=== PATIENT | female | born 1935 | race Caucasian/White ===

== ENCOUNTER 2016-06-28 08:18 | Inpatient (IN) | payer MEDICARE, OTHER ==
[2016-06-22 10:10] LABS: BASOPHILS 0.3 %; BASOPHILS ABSOLUTE 0.02 10/3/uL (0.0-0.16); EOSINOPHILS 2.4 %; EOSINOPHILS ABSOLUTE 0.17 10/3/uL (0.0-0.53); HEMATOCRIT 37.9 % (36.0-48.0); HEMOGLOBIN 12.7 g/dL (12.0-16.0); IMMATURE GRANULOCYTES 0.1 %; IMMATURE GRANULOCYTES ABSOLUTE 0.01 10/3/uL (0.0-0.11); LYMPHOCYTES 35.2 %; LYMPHOCYTES ABSOLUTE 2.49 10/3/uL (0.67-4.30); MEAN CORPUS HGB CONC 33.5 g/dL (32.0-36.0); MEAN CORPUSCULAR HEMOGLOB 26.6 pg (26.0-34.0); MEAN CORPUSCULAR VOLUME 79.3 fL (80-100); MEAN PLATELET VOLUME 11.2 fL (9.2-13.0); MONOCYTES 19.9 %; MONOCYTES ABSOLUTE 1.41 10/3/uL (0.21-1.20); NEUTROPHILS 42.1 %; NEUTROPHILS ABSOLUTE 2.97 10/3/uL (2.02-8.40); PLATELET COUNT 295 10/3/uL (150-400); RBC DISTRIBUTION WIDTH 14.1 % (12.0-16.0); RED CELL COUNT 4.78 10/6/uL (4.0-5.6); WHITE BLOOD CELLS 7.1 10/3/uL (4.5-10.5)
[2016-06-22 10:14] LABS: MANUAL DIFF NO %
[2016-06-22 10:23] LABS: % IRON SAT 16 % (20-50); A/G RATIO 1.3 (0.7-1.9); ALBUMIN 4.1 G/DL (3.5-5.0); ALKALINE PHOSPHATASE 70 U/L (45-117); BUN (BLOOD UREA NITROGEN) 35 MG/DL (6-23); CALCIUM, SERUM 8.8 MG/DL (8.5-10.4); CHLORIDE, SERUM 102 MMOL/L (96-112); CO2 (CARBON DIOXIDE) 27 MMOL/L (24-34); CREATININE 1.55 MG/DL (0.55-1.02); GFR AFRICAN AMERICAN 36 ML/MIN (>=60); GFR NON AFRICAN AMERICAN 31 ML/MIN (>=60); GLOBULIN 3.1 G/DL (2.5-4.1); GLUCOSE, SERUM 80 MG/DL (60-99); IRON BINDING CAPACITY 366 MCG/DL (225-410); IRON, SERUM 57 MCG/DL (35-150); POTASSIUM, SERUM 3.2 MMOL/L (3.5-5.3); SGOT(AST) 12 U/L (5-40); SGPT(ALT) 22 U/L (5-65); SODIUM, SERUM 137 MMOL/L (135-148); TOTAL BILIRUBIN 0.4 MG/DL (0-1.2); TOTAL PROTEIN 7.2 G/DL (6.0-8.5)
[2016-06-22 10:25] LABS: INTERNATIONAL NORMAL RATI 0.9 UNITS (-); PROTIME (NOT ORD) 12.3 SEC (12.0-14.5)
[2016-06-22 10:26] LABS: ASCORBIC ACID (UR NOT ORDER) NEG (NEG); BILIRUBIN, URINE NEGATIVE (NEG); KETONE, URINE NEGATIVE (NEG); LEUKOCYTE ESTERASE(NOT OR NEG (NEG); WBC (NOT ORDERED) (RFLEX) 1 (0-5)
--- NOTE | ~2016-06-28 | CN ---
Consultation Report [facility] [address] [place]. [address] NAME: MISHA STEWART : 35 STATUS : ADM IN PAT#: [id number] AGE: 80 ADM/REG DATE : 06/28/16 MR#: [id number] REPORT SERV DATE: 06/30/16 DICTATED BY: DELMY HODGSON DATE: 06/30/16 REPORT STATUS : Draft TRANSCRIBED BY: MODL DATE: 06/30/16 DATE OF CONSULTATION: 06/30/2016 REASON FOR CONSULTATION: Hyperglycemia, prediabetes, nausea. HISTORY OF PRESENT ILLNESS: This is an 80-year-old pleasant female with known history of hypertension; osteoporosis; surgical history of CAD with CABG x2, postop day 2; with aortic stenosis requiring a bioprosthetic AVR, postop day #2; known history of pulmonary hypertension now due to aortic stenosis; dowl-sc-mtmfceii mitral regurgitation as well. The patient had A1c that was prediabetic at 6.0 as well. The patient was transitioned from insulin drip to now subcutaneous insulin with sugars that have been fluctuating from 82-262 since. The patient says positive chills. No fevers. Positive nausea. She did have some emesis a day ago that is very mild, nonbilious. No diarrhea. Only has some pleuritic chest pain at the site of surgery. No shortness of breath. She has some increased lower extremity swelling. The patient had a bowel movement since Monday, has had decreased interest in eating. She also finds it nauseating to look at food at this time. Dr. Hinojosa's team has started the patient on IV Reglan. The patient stated the patient would rather choose lifestyle modification to reverse her prediabetes with dietary modification. PAST MEDICAL AND PAST SURGICAL HISTORY: See above including hysterectomy, tonsillectomy, adenoidectomy, cataract surgery, left hand ORIF, salivary gland stone resection apparently, Bartholin cyst surgery. FAMILY HISTORY: Hypertension in at least one parent. ALLERGIES: PENICILLIN AND SULFA. REVIEW OF SYSTEMS: Review of systems done, see HPI. Otherwise, negative. SOCIAL HISTORY: Does not actively drink, do drugs, or smoke. PHYSICAL EXAMINATION: VITAL SIGNS: Blood pressure 106/53; 90% on room air; 18 respirations; 75 pulse; 97.9 temp. GENERAL: No acute distress. HEENT: PERRLA. No scleral icterus. CARDIOVASCULAR: Appears to have a regular rate and rhythm. RESPIRATORY: Decreased breath sounds bibasilar. Consultation Report [address] [id number] [place]. [address] NAME: MISHA STEWART : 35 STATUS : ADM IN PAT#: [id number] AGE: 80 ADM/REG DATE : 06/28/16 MR#: [id number] REPORT SERV DATE: 06/30/16 DICTATED BY: DELMY HODGSON DATE: 06/30/16 REPORT STATUS : Draft TRANSCRIBED BY: RYANN DATE: 06/30/16 ABDOMEN: Soft, nontender, nondistended. EXTREMITIES: 1+ pitting edema. NEURO: A and O x4/4. GCS of 15. LABORATORIES: Currently, she has a white count that is 20.0 from 15.1, hemoglobin 9.2 from 9.5. She has also got a platelet count of 138,000. Sodium 135; potassium 4.6; 101 chloride; 21 bicarb; 1.06 creatinine. She also has a sugar of 155. Mag of 2.4. I wanted to get a KUB that is pending. IMPRESSION AND RECOMMENDATION: 1. Prediabetes. A1c of 6.0. The patient wants lifestyle, diet modification over any metformin or glimepiride. 2. Nausea with decreased appetite with no bowel movement since Monday. 3. History of coronary artery disease with CABG with bio AVR, postop day 2; defer to Dr. Hinojosa and team. Thank very much for this consultation. Internal Medicine will follow along with you. I will go ahead and reduce her diet to full liquids, ADA, and have diabetic education crisis counselor the patient regarding dietary modification to reverse her prediabetes state as that would be the most conservative approach rather than any outpatient metformin or glimepiride. The patient is amenable for that. Regarding her nausea, decreased appetite, and no bowel movement since Monday, she may have an anesthesia-like consequence with decreased bowel peristalsis. As a result, we will get a KUB and rule out for any type of ileus at this time. In the interim, we will try to conservatively approach with magnesium citrate, reduce her diet to full liquid. I already ordered Glucerna cans. We will also go ahead and continue her on NovoLog level 2 sliding scale with Accu-Cheks q.6 hours for sugars are ever more than 180 persistently. We can bridge her with Levemir 8 units subcu daily guarding against any hypoglycemia. We will also add her with sodium bicarbonate regarding this mild acidosis likely due to fasting. See rest of my orders. All questions were answered. It took well over 60 minutes to do. Reference [employer] and [employer]. Either myself or partner will follow this patient tomorrow. WST/SEVERINOL Delmy Hodgson, DO Consultation Report [address] [place]. [address] NAME: MISHA STEWART : 35 STATUS : ADM IN PAT#: [id number] AGE: 80 ADM/REG DATE : 06/28/16 MR#: [id number] REPORT SERV DATE: 06/30/16 DICTATED BY: DELMY HODGSON DATE: 06/30/16 REPORT STATUS : Draft TRANSCRIBED BY: RYANN DATE: 06/30/16 / [id number] CC: Zurdo Hinojosa M.D.
--- NOTE | ~2016-06-28 | DS ---
Discharge Summary [facility] [address] [place]. [address] NAME: MISHA STEWART : 35 STATUS : DIS IN PAT#: [id number] AGE: 80 ADM/REG DATE : 06/28/16 MR#: [id number] REPORT SERV DATE: 07/15/16 DICTATED BY: MILES HINOJOSA DATE: 07/14/16 REPORT STATUS : Draft TRANSCRIBED BY: MODRadha DATE: 07/14/16 Data Collection from hospitalization DISCHARGE DIAGNOSES: 1. Aortic stenosis status post aortic valve replacement. 2. Coronary artery disease status post coronary artery bypass grafting. 3. Left pleural effusion. 4. Urinary tract infection. 5. Paroxysmal atrial tachycardia. 6. Secondary pulmonary hypertension. 7. Hypertension. 8. Hypothyroidism. CONSULTATIONS: Dr. Matthew Cates. Dr. Dariana Day. PROCEDURES PERFORMED: 1. Aortic valve replacement using a 21 mm pericardial valve (Trifecta); coronary artery bypass grafting x2 with MOSLEY to the LAD; reverse saphenous vein graft placed to the second obtuse marginal; endoscopic vein harvest saphenous vein from the right thigh; transesophageal echocardiography, 06/28/2016. 2. Ultrasound-guided thoracentesis, 07/05/2016. PATHOLOGY: Heart aortic valve leaflets replacement-dystrophic calcification. No acute inflammation. DISCHARGE MEDICATION: Tylenol 500 mg as needed, Fosamax 70 mg every seven days, Cordarone 200 mg daily, aspirin 81 mg daily, Lipitor 40 mg at bedtime, Caltrate plus D 600 mg twice a day, vitamin D3 1000 units daily, vitamin B12 1000 mcg daily, Vivelle 0.0375 mg topically twice a week as instructed, Lasix 40 mg daily, Xalatan one drop at bedtime, levothyroxine 50 mcg daily, Mag-Ox 500 mg daily, Toprol-XL 25 mg daily, Savella 50 mg twice a day, multivitamins one tablet daily, Nitrostat 0.4 mg sublingually as needed, Daypro 600 mg daily, Roxicodone 5 mg every four hours as needed, K-Dur 20 mEq daily, Diovan 40 mg daily, Coumadin 2.5 mg daily. CONDITION AT DISCHARGE: Stable. DISPOSITION: The patient was discharged home on a regular diet with activities as instructed. She would follow up with Dr. Iker Harmon, 07/26/2016 and with Scott Matta 08/04/2016. She would follow up with Dr. Dominic Lutz Jr., 08/03/2016. She would follow up with Scott Matta, 07/19/2016. She would follow up with the [facility], 07/07/2016. She would follow up at cardiac rehab, 08/09/2016. HOSPITAL COURSE: This is an 80-year-old female, who had noticed dyspnea with exertion. She had undergone an examination and was found to have a murmur. Echocardiography demonstrated aortic valve insufficiency and stenosis. Ventricular function was preserved. She had been seen by Dr. Harmon and underwent a cardiac catheterization, which demonstrated significant two-vessel coronary artery disease. Treatment options were discussed and it was elected to proceed with surgical intervention. She was admitted to the hospital at this time for Discharge Summary [address] [address] NAME: MISHA STEWART : 35 STATUS : DIS IN PAT#: [id number] AGE: 80 ADM/REG DATE : 06/28/16 MR#: [id number] REPORT SERV DATE: 07/15/16 DICTATED BY: MILES HINOJOSA DATE: 07/14/16 REPORT STATUS : Draft TRANSCRIBED BY: RYANN DATE: 07/14/16 further evaluation and treatment. Upon admission, she was taken to the operating room, where she underwent the above-mentioned procedure. She tolerated this well and there were no complications. On postop day #1, she was seen by Dr. Dariana Day. The patient did have a cough. She had no chest pain or shortness of breath. She was doing well postoperatively. She was up sitting in a chair. Her incisions looked okay. She had no edema. White count was 15.1. Beta-olesya was changed to Coreg. The patient does have secondary pulmonary hypertension. On the 6th, she had decreased breath sounds. She did complain of some incisional pain. Her pacing wires were removed. Savella was going to be restarted as well as Daypro. We encouraged her to ambulate. She was seen by Dr. Matthew Cates regarding hyperglycemia, prediabetes, and nausea. She has a hemoglobin A1c of 6.0. She was felt to be a prediabetic. The patient was transitioned from an insulin drip to subcutaneous insulin. She did have some chills, but no fever. The patient wants lifestyle and diet modification over any metformin or glimepiride. She was tolerating full liquids. She was going to undergo diabetes education. We counseled the patient regarding dietary modification to reverse her prediabetes state as that would be the most conservative approach rather than any outpatient metformin or glimepiride. KUB was going to be performed. Magnesium citrate was going to be given. Full liquids would be continued. Glucerna was going to be provided. Level 2 NovoLog was being given. We were going to add some sodium bicarbonate. She was in a sinus rhythm. Aspirin was increased. Dilaudid was discontinued. Amiodarone was decreased. On 07/01/2016, she had no chest pain or shortness of breath. She remained in a sinus rhythm. We encouraged her to mobilize. Blood glucose levels remained stable. She was now off all insulin. She still has some complaints of nausea. Her left pleural effusion was stable from prior studies. Lasix was continued. On 07/04/2016, she had decreased breath sounds in her lung bases. She seemed to be breathing better. White count was 15.5. Urinalysis was going to be checked. Blood pressure was controlled. She was ambulatory. Amiodarone was decreased. The next day, discharge planning was performed. She was going to be placed back on scheduled Mylicon and Reglan to decrease her gas. She had been complaining of excessive gas and bloating. Blood sugars remained stable. It was felt that she may need to undergo a thoracentesis procedure. Coreg was changed to Toprol. The patient underwent ultrasound-guided thoracentesis. A 1100 mL of fluid was obtained. On 07/06/2016, she seemed to be doing better. She had no chest pain or shortness of breath. Her edema and weight had decreased. Discharge instructions were given. Due to her improved and stable condition, she was discharged home with the above-stated instructions. Information collected by: Yarely Frank I submit the above information as my discharge summary. TG/MODL Miles Hinojosa M.D. / [id number] Discharge Summary [address] [facility] [place] [address] NAME: MISHA STEWART : 35 STATUS : DIS IN PAT#: [id number] AGE: 80 ADM/REG DATE : 06/28/16 MR#: [id number] REPORT SERV DATE: 07/15/16 DICTATED BY: MILES HINOJOSA DATE: 07/14/16 REPORT STATUS : Draft TRANSCRIBED BY: RYANN DATE: 07/14/16 CC: Tri Hernandez Jr., M.D. Ondrej J Lisy, M.D.
--- NOTE | ~2016-06-28 | OP ---
Record Of Operation [facility] [address] [place]. [address] NAME: ARNAV STEWARTFLORENCIO Beltran : 35 STATUS : ADM IN PAT#: [id number] AGE: 80 ADM/REG DATE : 06/28/16 MR#: [id number] REPORT SERV DATE: 06/30/16 DICTATED BY: MILES HINOJOSA DATE: 06/30/16 REPORT STATUS : Draft TRANSCRIBED BY: MODL DATE: 06/30/16 DATE OF PROCEDURE: 06/28/2016 PREOPERATIVE DIAGNOSES: 1. Aortic valve stenosis with insufficiency. 2. Coronary artery disease. 3. Hypertension. 4. High fibromyalgia. 5. Hypothyroidism. 6. Hyperlipidemia. POSTOPERATIVE DIAGNOSES: 1. Aortic valve stenosis with insufficiency. 2. Coronary artery disease. 3. Hypertension. 4. High fibromyalgia. 5. Hypothyroidism. 6. Hyperlipidemia. PROCEDURES PERFORMED: 1. Aortic valve replacement using a 21 mm pericardial valve (Trifecta). 2. Coronary artery bypass grafting x2, left internal mammary artery placed to the left anterior descending, reverse saphenous vein graft placed to the second obtuse marginal. 3. Endoscopic vein harvest, saphenous vein from right thigh. 4. Transesophageal echocardiography. SURGEON: Miles Hinojosa M.D. BEATER OPERATOR: Dr. Bill Murillo MD; Saw Fontenot; and Avril Elizabeth. ANESTHESIA: General with Dr. Toth. BIOFUELS RESEARCH SCIENTIST: Iker Harmon M.D. 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 She has noticed dyspnea with exertion. She underwent examination, and was found to have a murmur. Echocardiography demonstrated aortic valve insufficiency and stenosis. Ventricular function was preserved. She was seen by Dr. Harmon and underwent a cardiac catheterization which demonstrated significant two-vessel coronary artery disease. We were asked to see the patient for possible coronary artery bypass grafting with aortic valve replacement. She had yfis-ju-zjqixjrx mitral valve insufficiency also. She had carotid ultrasound studies in March demonstrated bilateral grade 1 disease. We discussed possible coronary artery bypass grafting and aortic valve replacement with the patient and family, and they wished to proceed. FINDINGS AT OPERATION: Record Of Operation [facility] [address] [place]. [address] NAME: MISHA STEWART Ruby : 35 STATUS : ADM IN PAT#: [id number] AGE: 80 ADM/REG DATE : 06/28/16 MR#: [id number] REPORT SERV DATE: 06/30/16 DICTATED BY: MILES HINOJOSA DATE: 06/30/16 REPORT STATUS : Draft TRANSCRIBED BY: RYANN DATE: 06/30/16 1. Cross-clamp 85 minutes, total pump time 99 minutes. 2. LAD was a 1.5 mm mildly diseased vessel. A 2 mm MOSLEY was anastomosed to it with good runoff. 3. The second obtuse marginal was less than 1.5 mm mildly diseased. A 3 mm RSVG was anastomosed to it with good runoff. 4. The vein quality was good. It was small at 3 mm, but matched the targets nicely. Both grafts had good Doppler signal at the end of the case. 5. The aortic valve had three leaflets, were moderately calcified. The coronary anatomy was normal, and there was no aortic root dilatation. 6. We planned to trisect the valve, 21 mm. 15 Cor-Knots were used to secure the valve in place. 7. YELENA at the end of the operation demonstrated good ventricular function. The aortic valve prosthesis was well-seated without perivalvular leak. There was mild mitral valve insufficiency. Pathologic specimen includes aortic valve leaflets. DESCRIPTION OF PROCEDURE: The patient was brought to the operating suite. General anesthesia was induced. Airway was secured with an endotracheal tube. Lines were secured by Anesthesia, and a Landrum catheter was placed. The patient's chest, abdomen, groin, and legs were prepped with Hibiclens and ChloraPrep, and draped with Ioban sterile sheets. YELENA probe was placed by Dr. Toth, and examination was carried out as discussed above. The mitral valve insufficiency was felt to be mild. The saphenous vein was harvested from the right thigh using endoscopic technique. Briefly, the vein was cut directly down upon through a 2 cm incision placed to the medial aspect of the right knee. Then, using the VasoView trocars, the vessel was dissected from the surrounding subcutaneous tissue and fat. The side branches were identified, ligated, and divided with cautery. Once adequate length of the vein had been dissected, a counter incision made up in the groin. The vein was ligated, divided, and brought through the knee incision. The vein quality was good. The leg was made hemostatic and closed in layers with absorbable suture and the skin was closed in subcuticular fashion. Next, a midline sternal incision was made at the sternum with a saw. The left hemithorax was elevated and the endothoracic fascia was incised. The side branches of the ZACK were clipped and divided. Once the ZACK was completely dissected, the patient was anticoagulated with heparin, and the chest tube was placed at the left pleural cavity. The ZACK was clipped and divided distally. There was good flow through the ZACK and its pedicle was infiltrated with papaverine. Next, the Kem retractor was placed in the pericardium over from the innominate vein and diaphragm, where it was T'd and tacked to the side chest wall. Cannulation pursestring sutures were placed, and cannulation was carried out in a routine manner. A retrograde cardioplegia cannula was placed in the coronary sinus. When all was in readiness, the patient was placed on cardiopulmonary bypass. The distal targets were marked out on the heart as described in the findings. Then, a heart support was placed. The aorta was crossclamped, and an initial dose of cold blood cardioplegia solution was given in a combination of antegrade and retrograde fashion, then in a Record Of Operation [address] [place]. [address] NAME: MISHA STEWART : 35 STATUS : ADM IN PAT#: [id number] AGE: 80 ADM/REG DATE : 06/28/16 MR#: [id number] REPORT SERV DATE: 06/30/16 DICTATED BY: MILES HINOJOSA DATE: 06/30/16 REPORT STATUS : Draft TRANSCRIBED BY: MODRadha DATE: 06/30/16 retrograde manner at 20 to 25 minutes intervals during the remainder of the cross-clamp period. Following the first dose of cardioplegia, the heart was positioned for the obtuse marginal graft. Arteriotomy was made. The vein graft was then anastomosed to it with 7-0 Prolene. The vein graft was measured back to the left side of the ascending aorta, where it was divided. We then positioned the heart for the LAD graft. Arteriotomy was made in the mid to distal LAD. The ZACK was brought out of the left chest through a notch in the pericardium over the pulmonary artery. The ZACK was opened and anastomosed to the LAD with running suture of 8-0 Prolene. The endothoracic fascia was tacked to epicardium. The heart support was then removed and another dose of cardioplegia was given. An LV vent was then placed through the right superior pulmonary vein and directed into the left ventricle through the mitral valve. We then turned our attention towards the aortic valve. A hockey-stick type aortotomy incision was made just above the sinotubular junction. The aortic valve was exposed. The aortic valve had three leaflets, which were moderately calcified. There was no obvious reason for the aortic insufficiency. Coronary anatomy was normal. There was no aortic root dilatation. The valve leaflets were excised and the annulus was debrided of all calcific material. We then irrigated the ascending aorta and left ventricle copiously with iced saline to remove any particulate matter. The aortic valve was sized and a 21 mm pericardial valve was selected (Trifecta). Then, interrupted pledgeted sutures of 2-0 Tycron were placed in using a horizontal mattress fashion about the aortic valve annulus. The sutures were then passed through the sewing cuff of the valve prosthesis. This was lowered into position, each sutures were individually secured and divided using a Cor-Knot device. A total of 15 Cor-Knots were utilized. The valve appeared to be well-seated. Both right and left main coronary ostia were without obstruction. Warming was begun. The aortotomy incision was closed in a two-layer fashion with running pledgeted suture of 5- 0 Prolene. A 4.5 mm punch aortotomy was made on the left side of the aorta and the obtuse marginal graft was brought up to the site and anastomosed in an end-to-side fashion with a running suture of 6-0 Prolene. The patient was placed in Trendelenburg and final dose of warm blood cardioplegia was given in a retrograde fashion. Ventricular and atrial pacing wires were placed. Following the last dose cardioplegia and deairing of the aorta, the aortic cross-clamp was removed. The distal and proximal anastomoses were inspected and made hemostatic. Doppler demonstrated good flow through the grafts. The heart resumed a junctional rhythm slowly and was paced in AV fashion at a rate of 80. Ventilation was begun. When heart demonstrated good contractility, it was allowed to fill and eject. When deairing was completed, the patient was brought out of Trendelenburg. The LV vent was removed and these pursestring sutures tied. The ascending aortic vent was removed and these pursestring sutures tied and Record Of Operation [id number] [place]. [address] NAME: MISHA STEWART : 35 STATUS : ADM IN [facility]#: [id number] AGE: 80 ADM/REG DATE : 06/28/16 MR#: [id number] REPORT SERV DATE: 06/30/16 DICTATED BY: MILES HINOJOSA DATE: 06/30/16 REPORT STATUS : Draft TRANSCRIBED BY: RYANN DATE: 06/30/16 reinforced. The patient was weaned from cardiopulmonary bypass with minimal inotropic support. The venous cannula was removed and these pursestring sutures tied. YELENA examination demonstrated good ventricular function with the aortic valve prosthesis was well-seated without perivalvular leak. There was no significant mitral insufficiency. Protamine was administered by Anesthesia. Following a period of hemodynamic stability, the aortic cannula was removed and these pursestring sutures tied and reinforced. The patient continued do well and chest was irrigated copiously with saline. Meticulous hemostasis was obtained. Hemasorb was ordered placed along the cut edge of the sternum. Once hemostasis was assured, the pericardium was draped over the anterior surface of the heart and tacked into position. Chest tubes were placed and sternum was reapproximated with 8 sternal wires. The clavipectoral fascia and linea alba were closed #1 STRATAFIX. The subcutaneous tissue was closed with 2-0 STRATAFIX. The skin was closed in subcuticular fashion. The patient tolerated the procedure well. There were no complications. Sponge and needle counts were correct. DISPOSITION: The patient was left intubated, sedated, and transported to the Intensive Care Unit in a stable condition. CHLOE/RYANN Miles Hinojosa M.D. / [id number] CC: Tri Hernandez Jr., M.D. Allen E Atchley, M.D.
[~2016-06-28 08:18] MED LIST: ACET500CAP PO; ASAB PO; CALTRA600D PO; CLINDA150 PO; CYANO1000T PO; DIOV80 PO; ENJUVIA0.45 MG OR; FOSAMAX70 MG PO; GLUCCHONDR PO; K-PHOS 500 MG500 MG PO; LEVOTHYROXIN50 MCG PO; LIPITOR40 PO; MAGOX4 PO; MAXZIDE PO; MULTIPLE VIT PO; NORV25 PO; OXAPROZIN600 MG PO; SAVELLA50 MG PO; TOPXL25 PO; VITAMIN D31000 UNIT PO; VITC500 PO; VIVELLE SY0.0375 MG/ TOP; XALAT OPH; [UNRECOGNIZED DRUG - OTHER] PO
[2016-06-28 15:37] LABS: TEG - ANGLE 68.9 DEG (53-72); TEG - RATE 8.2 MIN (5.0-10.0)
[2016-06-28 15:38] LABS: TEG - COAGULATION INDEX -0.3 (-3 TO 3); TEG - MAXIMUM AMPLITUDE 66.3 MM (50-70)
[2016-06-28 15:50] LABS: BE (BASE EXCESS) -2.5 MEQ/L (0 +/- 2.5); CARBOXYHEMOGLOBIN 0.3 % (0-3); HCO3 (ACTUAL BICARBONATE) 21.8 MEQ/L (23-27); HEMOBLOGIN CONTENT 10.5 G/DL (12-16); INSTRUMENT SERIAL # 11843; METHEMOGLOBIN 0.7 % (0-3); MODE SIMV; O2 CONTENT 15.1 VOL% (18-24); OPERATOR ID 18642; PCO2 (CO2 TENSION) 36 MMHG (35-45); PO2 (O2 TENSION) 284 MMHG (79-93); SAMPLE Arterial; TIDAL VOLUME 400 ML
[2016-06-28 16:10] LABS: HEMATOCRIT 29.2 % (36.0-48.0); HEMOGLOBIN 9.9 g/dL (12.0-16.0); PLATELET COUNT 115 10/3/uL (150-400)
[2016-06-28 16:16] LABS: INTERNATIONAL NORMAL RATI 1.5 UNITS (-); PARTIAL THROMBO TIME 39.4 SEC (22.5-37.2)
[2016-06-28 16:20] LABS: PROTIME (NOT ORD) 18.2 SEC (12.0-14.5)
[2016-06-28 16:21] LABS: CHLORIDE, SERUM 116 MMOL/L (96-112); CO2 (CARBON DIOXIDE) 24 MMOL/L (24-34); GLUCOSE, SERUM 84 MG/DL (60-99); POTASSIUM, SERUM 3.1 MMOL/L (3.5-5.3)
[2016-06-28 16:23] LABS: BUN (BLOOD UREA NITROGEN) 19 MG/DL (6-23); CREATININE 1.01 MG/DL (0.55-1.02); GFR AFRICAN AMERICAN 61 ML/MIN (>=60); GFR NON AFRICAN AMERICAN 53 ML/MIN (>=60); SODIUM, SERUM 150 MMOL/L (135-148)
[2016-06-28 18:53] LABS: BUN (BLOOD UREA NITROGEN) 19 MG/DL (6-23); CALCIUM, SERUM 8.8 MG/DL (8.5-10.4); CHLORIDE, SERUM 118 MMOL/L (96-112); CO2 (CARBON DIOXIDE) 24 MMOL/L (24-34); CREATININE 0.99 MG/DL (0.55-1.02); GFR AFRICAN AMERICAN 62 ML/MIN (>=60); GFR NON AFRICAN AMERICAN 54 ML/MIN (>=60); GLUCOSE, SERUM 125 MG/DL (60-99); POTASSIUM, SERUM 4.7 MMOL/L (3.5-5.3); SODIUM, SERUM 148 MMOL/L (135-148)
[2016-06-28 22:31] LABS: HEMATOCRIT 29.5 % (36.0-48.0); HEMOGLOBIN 10.1 g/dL (12.0-16.0)
[2016-06-28 22:45] LABS: BUN (BLOOD UREA NITROGEN) 20 MG/DL (6-23); CALCIUM, SERUM 8.6 MG/DL (8.5-10.4); CHLORIDE, SERUM 121 MMOL/L (96-112); CO2 (CARBON DIOXIDE) 21 MMOL/L (24-34); CREATININE 0.99 MG/DL (0.55-1.02); GFR AFRICAN AMERICAN 62 ML/MIN (>=60); GFR NON AFRICAN AMERICAN 54 ML/MIN (>=60); GLUCOSE, SERUM 101 MG/DL (60-99); POTASSIUM, SERUM 3.8 MMOL/L (3.5-5.3); SODIUM, SERUM 152 MMOL/L (135-148)
[2016-06-28 23:42] LABS: BE (BASE EXCESS) -4.6 MEQ/L (0 +/- 2.5); CARBOXYHEMOGLOBIN 0.3 % (0-3); DEVICE NC; HEMOBLOGIN CONTENT 10.4 G/DL (12-16); INSTRUMENT SERIAL # 11843; METHEMOGLOBIN 0.6 % (0-3); O2 CONTENT 14.8 VOL% (18-24); OPERATOR ID 17370; PCO2 (CO2 TENSION) 41 MMHG (35-45); PO2 (O2 TENSION) 221 MMHG (79-93); SAMPLE Arterial; pH 7.33 (7.37-7.43)
[2016-06-29 03:32] LABS: HEMOGLOBIN 9.5 g/dL (12.0-16.0); MEAN CORPUS HGB CONC 32.8 g/dL (32.0-36.0); MEAN CORPUSCULAR HEMOGLOB 26.6 pg (26.0-34.0); MEAN CORPUSCULAR VOLUME 81.2 fL (80-100); MEAN PLATELET VOLUME 11.5 fL (9.2-13.0); PLATELET COUNT 107 10/3/uL (150-400); RBC DISTRIBUTION WIDTH 14.6 % (12.0-16.0)
[2016-06-29 03:35] LABS: MANUAL DIFF YES %; RED CELL COUNT 3.57 10/6/uL (4.0-5.6); WHITE BLOOD CELLS 15.1 10/3/uL (4.5-10.5)
[2016-06-29 03:51] LABS: BUN (BLOOD UREA NITROGEN) 21 MG/DL (6-23); CALCIUM, SERUM 8.1 MG/DL (8.5-10.4); CHLORIDE, SERUM 119 MMOL/L (96-112); CO2 (CARBON DIOXIDE) 22 MMOL/L (24-34); CREATININE 0.84 MG/DL (0.55-1.02); GFR AFRICAN AMERICAN 76 ML/MIN (>=60); GFR NON AFRICAN AMERICAN 66 ML/MIN (>=60); GLUCOSE, SERUM 92 MG/DL (60-99); POTASSIUM, SERUM 3.6 MMOL/L (3.5-5.3); SODIUM, SERUM 149 MMOL/L (135-148)
[2016-06-29 03:56] LABS: BAND NEUTROPHILS 6 %; LYMPHOCYTES 8 %; LYMPHOCYTES ABSOLUTE (CALC) 1.21 10/3/uL (0.67-4.30); MONOCYTES 3 %; MONOCYTES ABSOLUTE (CALC) 0.45 10/3/uL (0.21-1.20); NEUTROPHILS ABSOLUTE (CALC) 13.44 10/3/uL (2.02-8.40); SEGMENTED NEUTROPHIL (0) 83 %; TOTAL NUCLEATED CELLS 100
[2016-06-29 03:57] LABS: PLATELET ESTIMATE DEC (ADEQUATE); RBC MORPHOLOGY NORM (NORMAL)
[2016-06-29 10:52] LABS: POTASSIUM, SERUM 4.3 MMOL/L (3.5-5.3)
[2016-06-29 16:19] LABS: HEMOGLOBIN 8.9 g/dL (12.0-16.0)
[2016-06-30 06:58] LABS: HEMATOCRIT 27.6 % (36.0-48.0); HEMOGLOBIN 9.2 g/dL (12.0-16.0); MEAN CORPUS HGB CONC 33.3 g/dL (32.0-36.0); MEAN CORPUSCULAR HEMOGLOB 27.1 pg (26.0-34.0); MEAN CORPUSCULAR VOLUME 81.2 fL (80-100); MEAN PLATELET VOLUME 11.6 fL (9.2-13.0); PLATELET COUNT 138 10/3/uL (150-400)
[2016-06-30 07:01] LABS: MANUAL DIFF YES %
[2016-06-30 07:11] LABS: BUN (BLOOD UREA NITROGEN) 27 MG/DL (6-23); CALCIUM, SERUM 8.1 MG/DL (8.5-10.4); CHLORIDE, SERUM 101 MMOL/L (96-112); CO2 (CARBON DIOXIDE) 21 MMOL/L (24-34); CREATININE 1.06 MG/DL (0.55-1.02); GFR AFRICAN AMERICAN 57 ML/MIN (>=60); GFR NON AFRICAN AMERICAN 50 ML/MIN (>=60); GLUCOSE, SERUM 155 MG/DL (60-99); POTASSIUM, SERUM 4.6 MMOL/L (3.5-5.3); SODIUM, SERUM 135 MMOL/L (135-148)
[2016-06-30 07:24] LABS: BAND NEUTROPHILS 1 %; LYMPHOCYTES 4 %; MONOCYTES 2 %; SEGMENTED NEUTROPHIL (0) 93 %; TOTAL NUCLEATED CELLS 100
[2016-06-30 07:25] LABS: OVALOCYTES 1+ (3-10/OIF) (0-2/OIF); PLATELET ESTIMATE SLT DEC (ADEQUATE); TEARDROP SHAPED RBCS OCC (0-2/OIF)
[2016-07-01 06:56] LABS: BUN (BLOOD UREA NITROGEN) 25 MG/DL (6-23); CALCIUM, SERUM 8.4 MG/DL (8.5-10.4); CHLORIDE, SERUM 101 MMOL/L (96-112); CO2 (CARBON DIOXIDE) 22 MMOL/L (24-34); CREATININE 0.97 MG/DL (0.55-1.02); GFR AFRICAN AMERICAN 64 ML/MIN (>=60); GFR NON AFRICAN AMERICAN 55 ML/MIN (>=60); GLUCOSE, SERUM 164 MG/DL (60-99); HEMATOCRIT 25.5 % (36.0-48.0); HEMOGLOBIN 8.2 g/dL (12.0-16.0); MEAN CORPUS HGB CONC 32.2 g/dL (32.0-36.0); MEAN CORPUSCULAR HEMOGLOB 26.3 pg (26.0-34.0); MEAN CORPUSCULAR VOLUME 81.7 fL (80-100); MEAN PLATELET VOLUME 11.9 fL (9.2-13.0); PHOSPHORUS, SERUM 1.7 MG/DL (2.5-4.5); PLATELET COUNT 130 10/3/uL (150-400); RBC DISTRIBUTION WIDTH 14.8 % (12.0-16.0); RED CELL COUNT 3.12 10/6/uL (4.0-5.6); SODIUM, SERUM 135 MMOL/L (135-148); WHITE BLOOD CELLS 13.9 10/3/uL (4.5-10.5)
[2016-07-01 07:01] LABS: MANUAL DIFF YES %
[2016-07-01 07:26] LABS: BAND NEUTROPHILS 4 %; LYMPHOCYTES 13 %; LYMPHOCYTES ABSOLUTE (CALC) 1.81 10/3/uL (0.67-4.30); MONOCYTES 17 %; MONOCYTES ABSOLUTE (CALC) 2.36 10/3/uL (0.21-1.20); NEUTROPHILS ABSOLUTE (CALC) 9.73 10/3/uL (2.02-8.40); SEGMENTED NEUTROPHIL (0) 66 %; TOTAL NUCLEATED CELLS 100
[2016-07-01 07:27] LABS: PLATELET ESTIMATE SLT DEC (ADEQUATE); REACTIVE LYMPHS FEW (3-5%) (0-5%)
[2016-07-01 07:28] LABS: BURR CELLS 1+ (3-10/OIF) (0-2/OIF)
[2016-07-01 09:50] LABS: PROCALCITONIN 0.16 ng/mL (<0.5)
[2016-07-02 05:43] LABS: MEAN CORPUS HGB CONC 33.3 g/dL (32.0-36.0); MEAN CORPUSCULAR VOLUME 81.1 fL (80-100); MEAN PLATELET VOLUME 11.2 fL (9.2-13.0); NUCLEATED RED BLOOD CELLS 0.5 /100WBC (0-0); PLATELET COUNT 161 10/3/uL (150-400); RBC DISTRIBUTION WIDTH 14.5 % (12.0-16.0); RED CELL COUNT 3.33 10/6/uL (4.0-5.6); WHITE BLOOD CELLS 10.6 10/3/uL (4.5-10.5)
[2016-07-02 05:44] LABS: MANUAL DIFF YES %
[2016-07-02 05:55] LABS: CALCIUM, SERUM 8.8 MG/DL (8.5-10.4); CHLORIDE, SERUM 100 MMOL/L (96-112); CREATININE 0.74 MG/DL (0.55-1.02); GFR AFRICAN AMERICAN 89 ML/MIN (>=60); GFR NON AFRICAN AMERICAN 77 ML/MIN (>=60); PHOSPHORUS, SERUM 1.7 MG/DL (2.5-4.5); POTASSIUM, SERUM 3.7 MMOL/L (3.5-5.3); SODIUM, SERUM 139 MMOL/L (135-148)
[2016-07-02 06:03] LABS: BUN (BLOOD UREA NITROGEN) 15 MG/DL (6-23); CO2 (CARBON DIOXIDE) 30 MMOL/L (24-34); GLUCOSE, SERUM 117 MG/DL (60-99)
[2016-07-02 07:26] LABS: LYMPHOCYTES 8 %; LYMPHOCYTES ABSOLUTE (CALC) 0.85 10/3/uL (0.67-4.30); MONOCYTES 23 %; MONOCYTES ABSOLUTE (CALC) 2.44 10/3/uL (0.21-1.20); NEUTROPHILS ABSOLUTE (CALC) 7.31 10/3/uL (2.02-8.40); PLATELET ESTIMATE ADQ (ADEQUATE); RBC MORPHOLOGY NORM (NORMAL); SEGMENTED NEUTROPHIL (0) 69 %; TOTAL NUCLEATED CELLS 100
[2016-07-03 06:25] LABS: HEMOGLOBIN 9.8 g/dL (12.0-16.0); MEAN CORPUSCULAR HEMOGLOB 26.1 pg (26.0-34.0); MEAN CORPUSCULAR VOLUME 82.7 fL (80-100); MEAN PLATELET VOLUME 11.1 fL (9.2-13.0); NUCLEATED RED BLOOD CELLS 0.9 /100WBC (0-0); PLATELET COUNT 201 10/3/uL (150-400); RBC DISTRIBUTION WIDTH 14.6 % (12.0-16.0); RED CELL COUNT 3.76 10/6/uL (4.0-5.6); WHITE BLOOD CELLS 14.5 10/3/uL (4.5-10.5)
[2016-07-03 06:27] LABS: HEMATOCRIT 31.1 % (36.0-48.0); MANUAL DIFF YES %; MEAN CORPUS HGB CONC 31.5 g/dL (32.0-36.0)
[2016-07-03 06:41] LABS: BUN (BLOOD UREA NITROGEN) 12 MG/DL (6-23); CALCIUM, SERUM 8.5 MG/DL (8.5-10.4); CHLORIDE, SERUM 97 MMOL/L (96-112); CO2 (CARBON DIOXIDE) 28 MMOL/L (24-34); CREATININE 0.68 MG/DL (0.55-1.02); GFR AFRICAN AMERICAN 96 ML/MIN (>=60); GFR NON AFRICAN AMERICAN 83 ML/MIN (>=60); GLUCOSE, SERUM 122 MG/DL (60-99); PHOSPHORUS, SERUM 2.7 MG/DL (2.5-4.5); POTASSIUM, SERUM 3.5 MMOL/L (3.5-5.3); SODIUM, SERUM 135 MMOL/L (135-148)
[2016-07-03 07:10] LABS: BAND NEUTROPHILS 3 %; IMMATURE GRANS ABSOLUTE (CALC) 0.15 10/3/uL (0.0-0.11); LYMPHOCYTES 9 %; LYMPHOCYTES ABSOLUTE (CALC) 1.31 10/3/uL (0.67-4.30); METAMYELOCYTES 1 %; MONOCYTES 30 %; MONOCYTES ABSOLUTE (CALC) 4.35 10/3/uL (0.21-1.20); SEGMENTED NEUTROPHIL (0) 57 %; TOTAL NUCLEATED CELLS 100
[2016-07-03 07:12] LABS: PATH REVIEW YES; PLATELET ESTIMATE ADQ (ADEQUATE); RBC MORPHOLOGY NORM (NORMAL)
[2016-07-03 09:36] LABS: PATH REVIEW SEE PATHOLOGY REPORT
[2016-07-04 05:56] LABS: BUN (BLOOD UREA NITROGEN) 11 MG/DL (6-23); CALCIUM, SERUM 7.9 MG/DL (8.5-10.4); CHLORIDE, SERUM 97 MMOL/L (96-112); CO2 (CARBON DIOXIDE) 31 MMOL/L (24-34); CREATININE 0.85 MG/DL (0.55-1.02); GFR AFRICAN AMERICAN 75 ML/MIN (>=60); GFR NON AFRICAN AMERICAN 65 ML/MIN (>=60); GLUCOSE, SERUM 118 MG/DL (60-99); POTASSIUM, SERUM 3.2 MMOL/L (3.5-5.3); SODIUM, SERUM 137 MMOL/L (135-148)
[2016-07-04 07:01] LABS: HEMOGLOBIN 8.3 g/dL (12.0-16.0); MEAN CORPUSCULAR HEMOGLOB 26.8 pg (26.0-34.0); MEAN CORPUSCULAR VOLUME 80.6 fL (80-100); MEAN PLATELET VOLUME 10.6 fL (9.2-13.0); NUCLEATED RED BLOOD CELLS 0.5 /100WBC (0-0); PLATELET COUNT 224 10/3/uL (150-400); RBC DISTRIBUTION WIDTH 14.3 % (12.0-16.0); WHITE BLOOD CELLS 15.5 10/3/uL (4.5-10.5)
[2016-07-04 07:05] LABS: MANUAL DIFF YES %; MEAN CORPUS HGB CONC 33.2 g/dL (32.0-36.0)
[2016-07-04 07:20] LABS: LYMPHOCYTES 12 %; LYMPHOCYTES ABSOLUTE (CALC) 1.86 10/3/uL (0.67-4.30); MONOCYTES 27 %; MONOCYTES ABSOLUTE (CALC) 4.19 10/3/uL (0.21-1.20); NEUTROPHILS ABSOLUTE (CALC) 9.46 10/3/uL (2.02-8.40); NUCLEATED RED BLOOD CELLS 1 /100WBC (0); PLATELET ESTIMATE ADQ (ADEQUATE); SEGMENTED NEUTROPHIL (0) 61 %; TOTAL NUCLEATED CELLS 100
[2016-07-04 07:23] LABS: OVALOCYTES 1+ (3-10/OIF) (0-2/OIF)
[2016-07-04 12:09] LABS: ASCORBIC ACID (UR NOT ORDER) 40 (NEG); BILIRUBIN, URINE NEGATIVE (NEG); KETONE, URINE NEGATIVE (NEG); LEUKOCYTE ESTERASE(NOT OR LARGE (NEG)
[2016-07-04 12:10] LABS: WBC (NOT ORDERED) (RFLEX) > 182 (0-5)
[2016-07-05 05:36] LABS: INTERNATIONAL NORMAL RATI 1.2 UNITS (-)
[2016-07-05 05:39] LABS: PROTIME (NOT ORD) 14.9 SEC (12.0-14.5)
[2016-07-05 05:43] LABS: HEMATOCRIT 23.3 % (36.0-48.0); HEMOGLOBIN 7.7 g/dL (12.0-16.0); MEAN CORPUSCULAR HEMOGLOB 26.2 pg (26.0-34.0); MEAN CORPUSCULAR VOLUME 79.3 fL (80-100); MEAN PLATELET VOLUME 10.1 fL (9.2-13.0); NUCLEATED RED BLOOD CELLS 0.5 /100WBC (0-0); PLATELET COUNT 264 10/3/uL (150-400); RBC DISTRIBUTION WIDTH 14.2 % (12.0-16.0); RED CELL COUNT 2.94 10/6/uL (4.0-5.6); WHITE BLOOD CELLS 13.6 10/3/uL (4.5-10.5)
[2016-07-05 05:45] LABS: MANUAL DIFF YES %
[2016-07-05 05:46] LABS: BUN (BLOOD UREA NITROGEN) 11 MG/DL (6-23); CALCIUM, SERUM 7.6 MG/DL (8.5-10.4); CHLORIDE, SERUM 96 MMOL/L (96-112); CO2 (CARBON DIOXIDE) 28 MMOL/L (24-34); CREATININE 0.94 MG/DL (0.55-1.02); GFR AFRICAN AMERICAN 66 ML/MIN (>=60); GFR NON AFRICAN AMERICAN 57 ML/MIN (>=60); GLUCOSE, SERUM 133 MG/DL (60-99); POTASSIUM, SERUM 3.5 MMOL/L (3.5-5.3); SODIUM, SERUM 133 MMOL/L (135-148)
[2016-07-05 06:38] LABS: BAND NEUTROPHILS 5 %; LYMPHOCYTES 13 %; LYMPHOCYTES ABSOLUTE (CALC) 1.77 10/3/uL (0.67-4.30); MONOCYTES 8 %; MONOCYTES ABSOLUTE (CALC) 1.09 10/3/uL (0.21-1.20); NEUTROPHILS ABSOLUTE (CALC) 10.74 10/3/uL (2.02-8.40); PLATELET ESTIMATE ADQ (ADEQUATE); POLYCHROMASIA 1+ (2-5/OIF) (0-1/OIF); SEGMENTED NEUTROPHIL (0) 74 %; TOTAL NUCLEATED CELLS 100
[2016-07-06 07:01] LABS: INTERNATIONAL NORMAL RATI 1.6 UNITS (-)
[2016-07-06 07:06] LABS: PROTIME (NOT ORD) 19.3 SEC (12.0-14.5)
[2016-07-06 09:09] LABS: HEMATOCRIT 23.7 % (36.0-48.0); HEMOGLOBIN 8.1 g/dL (12.0-16.0); MEAN CORPUS HGB CONC 34.2 g/dL (32.0-36.0); MEAN CORPUSCULAR HEMOGLOB 26.7 pg (26.0-34.0); MEAN CORPUSCULAR VOLUME 78.2 fL (80-100); MEAN PLATELET VOLUME 9.5 fL (9.2-13.0); PLATELET COUNT 324 10/3/uL (150-400); RBC DISTRIBUTION WIDTH 14.5 % (12.0-16.0); RED CELL COUNT 3.03 10/6/uL (4.0-5.6); WHITE BLOOD CELLS 11.8 10/3/uL (4.5-10.5)
[2016-07-06 09:10] LABS: MANUAL DIFF YES %
[2016-07-06 09:33] LABS: BUN (BLOOD UREA NITROGEN) 11 MG/DL (6-23); CALCIUM, SERUM 7.7 MG/DL (8.5-10.4); CHLORIDE, SERUM 99 MMOL/L (96-112); CO2 (CARBON DIOXIDE) 27 MMOL/L (24-34); CREATININE 0.85 MG/DL (0.55-1.02); GFR AFRICAN AMERICAN 75 ML/MIN (>=60); GFR NON AFRICAN AMERICAN 65 ML/MIN (>=60); GLUCOSE, SERUM 112 MG/DL (60-99); POTASSIUM, SERUM 3.5 MMOL/L (3.5-5.3); SODIUM, SERUM 136 MMOL/L (135-148)
[2016-07-06 09:54] LABS: LYMPHOCYTES 14 %; LYMPHOCYTES ABSOLUTE (CALC) 1.65 10/3/uL (0.67-4.30); MONOCYTES 24 %; MONOCYTES ABSOLUTE (CALC) 2.83 10/3/uL (0.21-1.20); NEUTROPHILS ABSOLUTE (CALC) 7.32 10/3/uL (2.02-8.40); SEGMENTED NEUTROPHIL (0) 62 %; TOTAL NUCLEATED CELLS 100
[2016-07-06 09:55] LABS: HYPOCHROMIA 1+ (3-10/OIF) (0-2/OIF); PLATELET ESTIMATE ADQ (ADEQUATE)
[2016-07-06 09:56] LABS: MICROCYTES 1+ (5-10/OIF) (0-5/OIF); OVALOCYTES 1+ (3-10/OIF) (0-2/OIF)
[2016-07-06] MEDS ORDERED: JANTOVEN1 MG PO (11:30)
[2016-07-06] MEDS ORDERED: OXYCOD PO (11:31)
[2016-07-06] MEDS ORDERED: NITROSTAT0.4 MG SL (11:31)
[2016-07-06] MEDS ORDERED: CORDARONE PO (11:32)
[2016-07-06] MEDS ORDERED: L40 PO (11:32)
[2016-07-06] MEDS ORDERED: KDUR20 PO (11:32)
[2016-10-24] MEDS ORDERED: MAXZIDE PO (04:24)
[2016-10-24] MEDS ORDERED: POTASSIUM GLUCO99 MG PO (04:26)
[2016-10-27] MEDS ORDERED: CEFT5 PO (12:34)
[2016-10-27] MEDS ORDERED: NYS500UDL PO (12:46)
== END 2016-07-06 13:22 | disposition home or self-care (01) | DRG 220 ==
LOC: SDC/OF 08:18 → CVICU 11:56 → 5NO 06-29 10:57
PROVIDERS: Internal Medicine; Internal Medicine Cardiovascular Disease; Thoracic Surgery (Cardiothoracic Vascular Surgery)
PROC: 02RF08Z Replacement of Aortic Valve with Zooplastic Tissue, Open Approach (ICD-10-PCS; 2016-06-28)
PROC: 02100Z9 Bypass Coronary Artery, One Artery from Left Internal Mammary, Open Approach (ICD-10-PCS; 2016-06-28)
PROC: 06BP0ZZ Excision of Right Saphenous Vein, Open Approach (ICD-10-PCS; 2016-06-28)
PROC: 5A1221Z Performance of Cardiac Output, Continuous (ICD-10-PCS; 2016-06-28)
PROC: B246ZZ4 Ultrasonography of Right and Left Heart, Transesophageal (ICD-10-PCS; 2016-06-28)
PROC: 021009W Bypass Coronary Artery, One Artery from Aorta with Autologous Venous Tissue, Open Approach (ICD-10-PCS; principal; 2016-06-28 12:00)
PROC: 0W9B3ZZ Drainage of Left Pleural Cavity, Percutaneous Approach (ICD-10-PCS; 2016-07-05)
DX: I25.10 Atherosclerotic heart disease of native coronary artery without angina pectoris (principal); N39.0 Urinary tract infection, site not specified; J90 Pleural effusion, not elsewhere classified; I27.2 Other secondary pulmonary hypertension; D62 Acute posthemorrhagic anemia; J98.11 Atelectasis; I10 Essential (primary) hypertension; M79.7 Fibromyalgia; E03.9 Hypothyroidism, unspecified; E78.5 Hyperlipidemia, unspecified; I35.0 Nonrheumatic aortic (valve) stenosis; D72.829 Elevated white blood cell count, unspecified; T38.0X5A Adverse effect of glucocorticoids and synthetic analogues, initial encounter; M81.0 Age-related osteoporosis without current pathological fracture; I34.0 Nonrheumatic mitral (valve) insufficiency; Z88.0 Allergy status to penicillin; Z88.2 Allergy status to sulfonamides
CPT/HCPCS: 31720; 32555; 36415; 71010; 71020; 71035; 74000; 80048; 80053; 81001; 82330; 82803; 82805; 82947; 82962; 83036; 83540; 83550; 83735; 84100; 84132; 84145; 84295; 85014; 85018; 85025; 85049; 85347; 85384; 85390; 85576; 85610; 85730; 86850; 86900; 86901; 86920; 87077; 87086; 87186; 87641; 88305; 88311; 93005; 94002; 94640; 94660; 94770; A9270-GY; C1713; C1769; C1894; J0690; J1170; J1644; J1956; J2150; J2250; J2370; J2405; J2440; J2597; J2720; J2765; J2795; J2930; J3010; J3475; J3480; P9045; P9047